=== PATIENT | male | born 1995 ===

== ENCOUNTER 2024-06-23 13:59 | Outpatient (AMB) | payer OTHER, SELFPAY ==
--- NOTE | 2024-06-23 14:03 | A.OFFPC_ITS ---
Vital Signs 06/23/24 14:16 Height 5 ft 6 in Weight 230 lb 6 oz BMI 37.2 BP 114/82 Blood Pressure Location Lt brachial Position Sitting Pulse 84 Pulse Source Pulse Oximeter Temp 97.1 F Temp Source Temporal Artery Scan Pulse Oximetry (%) 97 Oxygen Delivery Method Room Air Intake Visit Reasons: establish care Intake Note: The patient is a new patient establishing care for a physical exam. They have not seen a primary care provider in over 10 years. Cable Splicer Required: No Accompanied by: Self / Same As Patient Allergies No Known Allergies Allergy (Verified 06/23/24 14:21) Medication List - Last Reconciled 06/23/24 by Luis Shirley PA-C No Known Home Meds Tobacco use date assessed: 06/23/24 Dental Screening Dental Screen Date: 06/23/24 Did you have a dental visit in the last 12 months?: Yes Did you have a dental problem in the last 6 months where you did not have access to dental care?: No Was dental information given to patient?: Patient has dentist HPI establish care HPI Details The patient is a 28-year-old male presenting for a wellness visit and to discuss family history of high cholesterol. He reports no personal medical history of high blood pressure or other significant conditions. His primary concern relates to his family background, as both parents and a brother have high cholesterol. The patient is proactive about managing this risk, wanting to check his cholesterol levels. There are no reported incidents of cancer, heart attacks, or strokes within the family. He reported no personal past surgeries or serious illnesses. Vaccines: Up-to-date with COVID vaccine, declines flu vaccine. Considering tet[facility] Family History (Updated 06/23/24 @ 14:24 by Luis Shirley PA-C) Mother HLD (hyperlipidemia) Father HLD (hyperlipidemia) Brother HLD (hyperlipidemia) Social History (Updated 06/23/24 @ 14:25 by Luis Shirley PA-C) Housing: House Alcohol intake: current Alcohol intake frequency: holidays/special occasions only Patient Tobacco Use Status: Never used Tobacco e-Cigarette/Vaping Use: Never Used service: No Current occupational status: employed Current occupation: [employer] Cognitive needs: No Hearing needs: No Vision needs: No Questionnaire PHQ-9 Over the last 2 weeks, how often have you been bothered by any of the following problems? 1. Little interest or pleasure in doing things: not at all 2. Feeling down, depressed, or hopeless: not at all 3. Trouble falling or staying asleep, or sleeping too much: not at all 4. Feeling tired or having little energy: not at all 5. Poor appetite or overeating: not at all 6. Feeling bad about yourself - or that you are a failure or have let yourself or your family down: not at all 7. Trouble concentrating on things, such as reading the newspaper or watching television: not at all 8. Moving or speaking so slowly that other people could have noticed. Or the opposite - being so fidgety or restless that you have been moving around a lot more than usual: not at all 9. Thoughts that you would be better off or of hurting yourself in some way: not at all Total score: 0 Depression Screening Interpretation: Negative Depression Screening Done: Yes 06077 - PHQ-9 Billing: Yes Source: Developed by Drs. Garo Torrez, Mayte Landeros, Bhavik Hess and colleagues, with an educational geronimo from [employer]. Thrive Questionnaire Date Thrive assessed: 06/23/24 I am a: Patient What is your living situation today?: I have a steady place to live Within the past 12 months, did the food you bought not last and you didn't have the money to get more?: I choose not to answer this question Within the past 12 months, did you worry whether your food would run out before you got money to buy more?: I choose not to answer this question Do you have trouble paying for medicines?: I choose not to answer this question Do you have trouble getting transportation to medical appointments?: I choose not to answer this question Do you have trouble paying your heating and electricity bill?: I choose not to answer this question Do you have trouble taking care of your child, family member or friend?: I choose not to answer this question Do you have trouble with day-to-day activities such as bathing, preparing meals, shopping, managing finances, etc.?: I choose not to answer this question Are you currently unemployed and looking for a job?: I choose not to answer this question Are you interested in more education?: I choose not to answer this question Please select the resources that you would like help with: None Currently or been in a relationship where the following occur: I choose not to answer THRIVE Score: 0 AUDIT C Alcohol Use Questionnaire (AUDIT-C) 1. How often do you have a drink containing alcohol?: 2-4 times a month 2. How many drinks containing alcohol do you have on a typical day when you are drinking?: 1 or 2 3. How often do you have six or more drinks on one occasion?: Less than monthly Total Score: 3 KAYLIE-7 AMB Questionnaire KAYLIE-7 Date KAYLIE - 7 assessed: 06/23/24 Feeling nervous, anxious, or on edge: 0 = Not at all Not being able to stop or control worryin = Not at all Worrying too much about different things: 0 = Not at all Trouble relaxin = Not at all Being so restless that it is hard to sit still: 0 = Not at all Becoming easily annoyed or irritable: 0 = Not at all Feeling afraid as if something awful might happen: 0 = Not at all Total KAYLIE-7 score (0-4 normal; 5-9 mild; 10-14 moderate; 15-21 severe): 0 Source: Developed by Drs. Garo Torrez, Mayte Landeros, Bhavik Hess and colleagues, with an educational geronimo from [employer]. KAYLIE-7 Assessment Billing KAYLIE-7 Assessment Tool: KAYLIE-7 Assessment 50041 Review of Systems Const Denies headache(s) Eyes Denies loss of vision ENT Denies vertigo, Denies dizziness, Denies headache(s) and Denies sore throat Card Denies chest pain, Denies leg edema and Denies lightheadedness Resp Denies cough, Denies hemoptysis and Denies wheezing GI Denies abdominal pain, Denies melena, Denies constipation, Denies diarrhea and Denies vomiting Denies dysuria, Denies urinary frequency and Denies urinary urgency Musc Denies arthralgias, Denies joint swelling, Denies numbness and Denies tingling Neuro Denies Abnormal speech present, Denies behavioral changes, Denies vertigo, Denies dizziness, Denies headache(s), Denies loss of vision, Denies memory loss, Denies numbness and Denies tingling Psych Denies anxiety, Denies behavioral changes, Denies depression, Denies memory loss and Denies panic attacks Jeancarlos/Lymph Denies easy bleeding and Denies easy bruising Aller/Immun Denies wheezing Physical exam (Primary Care) Vital Signs: Last Vital Signs Temp 97.1 F 06/23/24 14:16 Pulse 84 06/23/24 14:16 BP 114/82 06/23/24 14:16 Pulse Ox 97 06/23/24 14:16 Oxygen Delivery Method Room Air 06/23/24 14:16 BMI result Body Mass Index 37.2 BMI Assessment/Plan discussion: High BMI High, discussed plan: lifestyle, weight reduction, dietary and physical activity Tobacco/Smoking Status: Tobacco use Status Tobacco use date assessed 06/23/24 06/23/24 14:05 Patient Tobacco Use Status Never used Tobacco 06/23/24 14:25 e-Cigarette/Vaping Use Never Used 06/23/24 14:25 PHQ-9: PHQ-9 Score PHQ-9: Total score 0 06/23/24 14:26 Depression Screening Interpretation: Negative Thrive Assessment: Date of Thrive Assessment Date Thrive assessed 06/23/24 06/23/24 14:05 Currently or been in a relationship where the following occur: I choose not to answer Const General: healthy appearing, no acute distress, alert and awake Nutritional Appearance: well nourished Orientation/consciousness: oriented to person, oriented to place and oriented to time HENMT Ears: TM's normal bilaterally General nose exam: Normal nasal mucous membranes and turbinates present Eyes Conjunctivae: conjunctivae normal Sclerae: sclerae normal Pupils: Equal, round and reactive pupils present Neck Neck: Yes no lymphadenopathy and Yes no JVD Thyroid: Thyroid normal Carotids: no bruits Resp Effort & Inspection: normal respiratory effort and not tachypneic Auscultation: no crackles, no rales, no rhonchi and no wheezes Cardio Rate: regular rate Rhythm: regular rhythm Heart sounds: no murmurs and normal S1 and S2 GI Palpation (GI): Soft to palpation, nontender, no hepatomegaly and no splenomegaly Auscultation: normal bowel sounds Skin General skin exam: no rashes or lesions noted and dry skin Neuro General: oriented to person, oriented to place and oriented to time Cranial nerves: Yes Equal, round and reactive pupils present Speech: No Abnormal speech present Gait exam (Neuro): Normal gait present Motor exam (neuro): no tremor noted Extrem Right upper extremity: full ROM Left upper extremity: full ROM Right lower extremity: full ROM; no edema Left lower extremity: full ROM; no edema Psych Mental Status: mental status grossly normal Speech and movement: Normal speech and movement present Affect: normal affect Attitude: cooperative Thought process: Normal thought process present Office Procedures Flu Questionnaire Does the patient have a severe egg allergy?: No Does the patient have severe life threatening allergies?: No Does the patient have a fever or illness today?: No Has the patient ever had Guillain-Wadley Syndrome?: No Has the patient ever had any past reaction to a flu shot?: No Immunizations Fluarix Triv [id number] (PF) 45 mcg (15 mcg x 3)/0.5 mL IM syringe Performing Provider: Luis Shirley PA-C [place] [facility] [place] [facility] Documented (not given) by: ALECIA Goss on 06/23/24 14:20 Reason Not Given: Patient Refused Coding Level of Care Code New Pt Level 4 (53095) Diagnoses Class 2 obesity E66.812 Screening for diabetes mellitus (DM) Z13.1 Family history of high cholesterol Z83.42 Additional Codes KAYLIE-7 Assessment Billing - KAYLIE-7 Assessment Tool: KAYLIE-7 Assessment 44976 ([id number]) PHQ-9 - 09936 - PHQ-9 Billing: Yes ([id number]) Assessment & Plan Assessment & Plan (1) Class 2 obesity: Code(s): E66.812 - Obesity, class 2 Category: Medical Plan: Patient does understand his BMI is over 35 and has been working on being more physically active and adapting to better eating habits. He does mention some interested in a GLP 1 though will continue working on lifestyle and dietary modifications for now. (2) Screening for diabetes mellitus (DM): Code(s): Z13.1 - Encounter for screening for diabetes mellitus Category: Medical Plan: As per HPI (3) Family history of high cholesterol: Code(s): Z83.42 - Family history of familial hypercholesterolemia Category: Medical Plan: Patient does admit to a family history of high cholesterol in his mother, brother father. Will do a baseline screening for hyperlipidemia Orders: Orders Comprehensive [place]. Panel Fast 06/23/24 Z13.1 - Encounter for screening for diabetes mellitus Complete Blood Count no Diff 06/23/24 Z13.1 - Encounter for screening for diabetes mellitus Influenza [id number] Immunization 06/23/24 Z23 - Encounter for immunization Lipid Panel 06/23/24 Z83.42 - Family history of familial hypercholesterolemia
[2024-06-23 14:16] VITALS: BP 114/82; PULSE 84; TEMP 36.2; O2SAT 97; BMI 37.2
== END 2024-06-23 14:44 | disposition home or self-care (01) ==
PROVIDERS: Visit Provider Physician Assistant
DX: Z23 Encounter for immunization (principal)

== ENCOUNTER → 2024-06-23 13:59 | Outpatient (BNVA) | payer OTHER, SELFPAY | PROVIDERS: Visit Provider Physician Assistant | DX: E66.812 Obesity, class 2 (principal); Z83.42 Family history of familial hypercholesterolemia | CPT/HCPCS: 90471; 96127 ==

== ENCOUNTER 2024-07-14 15:06 | Outpatient (REF) | payer OTHER, SELFPAY ==
[2024-07-14 16:19] LABS: Hematocrit 45.2 % (42.0-52.0); Mean Corpuscular HGB Conc 33.2 g/dl (31.0-36.0); Mean Corpuscular Hemoglobin 27.8 pg (27.0-33.0); Mean Corpuscular Volume 83.7 fL (80.0-98.0); Mean Platelet Volume 8.7 fL (9.4-12.4); Platelet Count 307 X10*3/uL (160-400); Red Cell Distribution Width 13.1 % (11.0-16.0); White Blood Count 9.3 X10*3/uL (4.8-10.8)
[2024-07-14 17:27] LABS: Alanine Aminotransferase 42 U/L (0-40); Albumin Level 4.4 g/dL (3.5-5.0); Anion Gap 12 (12-20); Aspartate Amino Transferase 32 U/L (5-37); Bilirubin Total 0.5 mg/dL (0.0-1.0); Blood Urea Nitrogen 13 mg/dL (9-16); Calcium 9.6 mg/dL (8.4-10.2); Carbon Dioxide 27 mmol/L (22-29); Chloride 105 mmol/L (96-108); Cholesterol 185 mg/dL (<200); Estimated Glomerular Filt Rate > 60; Glucose Fasting 84 mg/dL (60-99); HDL Cholesterol 52 mg/dL (>40); LDL Cholesterol Calculated 115 mg/dL (<100); Potassium 3.9 mmol/L (3.3-5.1); Sodium 140 mmol/L (135-145); Total Protein 8.3 g/dL (6.5-8.0); Triglycerides 90 mg/dL (<150)
[2024-07-14 17:58] LABS: Alkaline Phosphatase 88 U/L (39-117)
== END 2024-07-14 15:07 | disposition home or self-care (01) ==
LOC: HO.LAB 15:06
PROVIDERS: PCP Physician Assistant; Visit Provider Physician Assistant
DX: Z13.1 Encounter for screening for diabetes mellitus (principal); Z83.42 Family history of familial hypercholesterolemia
CPT/HCPCS: 36415; 80053; 80061; 85027

== ENCOUNTER 2025-04-14 15:09 | Outpatient (REF) | payer OTHER, SELFPAY ==
[2025-04-14 17:15] LABS: Hematocrit 46.6 % (42.0-52.0); Hemoglobin 15.7 g/dl (14.0-18.0); Mean Corpuscular HGB Conc 33.7 g/dl (31.0-36.0); Mean Corpuscular Hemoglobin 28.3 pg (27.0-33.0); Mean Corpuscular Volume 84.0 fL (80.0-98.0); NRBC Abs Auto 0.000 X10*3/uL (0.0-0.012); NRBC Pct Auto 0.0 /100WBC (0.0-0.2); Platelet Count 298 X10*3/uL (160-400); Red Blood Count 5.55 X10*6/uL (4.60-5.80); White Blood Count 8.7 X10*3/uL (4.8-10.8)
[2025-04-14 17:41] LABS: Alanine Aminotransferase 34 U/L (0-40); Albumin Level 5.0 g/dL (3.5-5.0); Alkaline Phosphatase 90 U/L (39-117); Anion Gap 13 (12-20); Aspartate Amino Transferase 28 U/L (5-37); Blood Urea Nitrogen 10 mg/dL (9-16); Calcium 9.9 mg/dL (8.4-10.2); Carbon Dioxide 28 mmol/L (22-29); Chloride 103 mmol/L (96-108); Cholesterol 231 mg/dL (<200); Estimated Glomerular Filt Rate > 60; HDL Cholesterol 51 mg/dL (>40); Potassium 4.2 mmol/L (3.3-5.1); Sodium 140 mmol/L (135-145); Total Protein 8.0 g/dL (6.5-8.0); Triglycerides 117 mg/dL (<150)
== END 2025-04-14 15:10 | disposition home or self-care (01) ==
LOC: HO.LAB 15:09
PROVIDERS: PCP Physician Assistant; Visit Provider Physician Assistant
DX: Z00.00 Encounter for general adult medical examination without abnormal findings (principal); E78.00 Pure hypercholesterolemia, unspecified; E66.812 Obesity, class 2; Z23 Encounter for immunization; Z13.1 Encounter for screening for diabetes mellitus; Z68.36 Body mass index [BMI] 36.0-36.9, adult; Z83.42 Family history of familial hypercholesterolemia
CPT/HCPCS: 36415; 80053; 80061; 85027; 90471; 90715; 96127

== ENCOUNTER 2025-04-14 15:09 | Outpatient (AMB) | payer OTHER, SELFPAY ==
--- NOTE | 2025-04-14 15:22 | A.OFFPC_ITS ---
Vital Signs 04/14/25 15:23 Height 5 ft 6 in Weight 225 lb 8 oz BMI 36.4 BP 108/80 Blood Pressure Location Lt brachial Position Sitting Pulse 83 Pulse Source Pulse Oximeter Temp 97.1 F Temp Source Temporal Artery Scan Pulse Oximetry (%) 97 Oxygen Delivery Method Room Air Intake Visit Reasons: annual exam Intake Note: Patient is here today for a physical. Chronic Specialist Required: No Automatic Spinning Lathe Operator: Not Required per policy Accompanied by: Self / Same As Patient Allergies No Known Allergies Allergy (Verified 04/14/25 15:30) Medication List - Last Reconciled 04/14/25 by Luis Shirley PA-C No Known Home Meds Tobacco use date assessed: 04/14/25 Dental Screening Dental Screen Date: 06/23/24 HPI annual exam HPI Details Patient is a 29-year-old male here today for an annual physical. Patient has a past medical history significant for class 2 obesity and a family history of high cholesterol. Patient has a family history of high cholesterol, most recent lipid panel showing appropriate total cholesterol and LDL. He would like to continue monitoring his cholesterol. .. Class 2 obesity: Patient does understand his BMI is over 35 and will continue working on being more physically active and adapting to better eating habits to reduce his weight. Vaccines: Up-to-date with COVID vaccine, declines FLu , Needs Tdap PFSH Surgical History History of placement of ear tubes Family History Mother HLD (hyperlipidemia) Father HLD (hyperlipidemia) Brother HLD (hyperlipidemia) Social History (Updated 04/14/25 @ 15:34 by Luis Shirley PA-C) Housing: House Alcohol intake: current Alcohol intake frequency: holidays/special occasions only Patient Tobacco Use Status: Never used Tobacco e-Cigarette/Vaping Use: Never Used Second Hand Smoke Exposure: No service: No Current occupational status: employed Current occupation: [employer] Cognitive needs: No Hearing needs: No Vision needs: No Questionnaire PHQ-9 Over the last 2 weeks, how often have you been bothered by any of the following problems? 1. Little interest or pleasure in doing things: nearly every day 2. Feeling down, depressed, or hopeless: not at all 3. Trouble falling or staying asleep, or sleeping too much: not at all 4. Feeling tired or having little energy: not at all 5. Poor appetite or overeating: not at all 6. Feeling bad about yourself - or that you are a failure or have let yourself or your family down: not at all 7. Trouble concentrating on things, such as reading the newspaper or watching television: not at all 8. Moving or speaking so slowly that other people could have noticed. Or the opposite - being so fidgety or restless that you have been moving around a lot more than usual: not at all 9. Thoughts that you would be better off or of hurting yourself in some way: not at all Total score: 3 Depression Screening Interpretation: Positive Depression Screening Done: Yes 90956 - PHQ-9 Billing: Patient declined-do not bill Source: Developed by Drs. Garo Torrez, Mayte Landeros, Bhavik Hess and colleagues, with an educational geronimo from [employer]. Thrive Questionnaire Date Thrive assessed: 06/16/24 I am a: Patient What is your living situation today?: I have a steady place to live Within the past 12 months, did the food you bought not last and you didn't have the money to get more?: I choose not to answer this question Within the past 12 months, did you worry whether your food would run out before you got money to buy more?: I choose not to answer this question Do you have trouble paying for medicines?: I choose not to answer this question Do you have trouble getting transportation to medical appointments?: I choose not to answer this question Do you have trouble paying your heating and electricity bill?: I choose not to answer this question Do you have trouble taking care of your child, family member or friend?: I choose not to answer this question Do you have trouble with day-to-day activities such as bathing, preparing meals, shopping, managing finances, etc.?: I choose not to answer this question Are you currently unemployed and looking for a job?: I choose not to answer this question Are you interested in more education?: I choose not to answer this question Please select the resources that you would like help with: None Currently or been in a relationship where the following occur: I choose not to answer THRIVE Score: 0 KAYLIE-7 AMB Questionnaire KAYLIE-7 Date KAYLIE - 7 assessed: 06/23/24 Source: Developed by Drs. Garo Torrez, Mayte Landeros, Bhavik Hess and colleagues, with an educational geronimo from [employer]. Review of Systems Const Denies body aches, Denies chills, Denies excessive sweating, Denies fatigue, Denies fever(s) and Denies headache(s) Eyes Denies blurry vision ENT Denies dysphagia, Denies vertigo, Denies dizziness, Denies headache(s), Denies hearing loss and Denies tinnitus Card Denies chest pain, Denies chest pain with activity, Denies syncope, Denies irregular heart rhythm and Denies dyspnea Resp Denies chest congestion, Denies cough, Denies hemoptysis, Denies dyspnea and Denies wheezing GI Denies abdominal pain, Denies melena, Denies hematochezia, Denies coffee ground emesis, Denies dysphagia, Denies diarrhea, Denies nausea and Denies vomiting Denies difficulty urinating, Denies dysuria, Denies urinary frequency, Denies urinary hesitancy and Denies urinary urgency Musc Denies arthralgias, Denies limited range of motion, Denies muscle cramps and Denies muscle weakness Skin/Breast Denies rash and Denies skin ulcer Neuro Denies Abnormal speech present, Denies confusion, Denies vertigo, Denies dizziness, Denies syncope, Denies headache(s), Denies memory loss and Denies seizure-like activity Psych Denies anxiety, Denies confusion, Denies depression, Denies memory loss, Denies panic attacks and Denies paranoia Endo Denies excessive sweating, Denies fatigue, Denies flushing, Denies polydipsia and Denies polyuria Aller/Immun Denies wheezing Physical exam (Primary Care) Vital Signs: Last Vital Signs Temp 97.1 F 04/14/25 15:23 Pulse 83 04/14/25 15:23 BP 108/80 04/14/25 15:23 Pulse Ox 97 04/14/25 15:23 Oxygen Delivery Method Room Air 04/14/25 15:23 BMI result Body Mass Index 36.4 BMI Assessment/Plan discussion: High BMI High, discussed plan: lifestyle, weight reduction, dietary and physical activity Tobacco/Smoking Status: Tobacco use Status Tobacco use date assessed 04/14/25 04/14/25 15:29 Patient Tobacco Use Status Never used Tobacco 04/14/25 15:29 e-Cigarette/Vaping Use Never Used 04/14/25 15:29 PHQ-9: PHQ-9 Score PHQ-9: Total score 3 04/14/25 15:29 Depression Screening Interpretation: Positive Thrive Assessment: Date of Thrive Assessment Date Thrive assessed 06/16/24 04/14/25 15:29 Currently or been in a relationship where the following occur: I choose not to answer Const General: cooperative, comfortable, no acute distress, alert and awake; No confusion Orientation/consciousness: oriented to person, oriented to place, patient oriented x3 and No confusion HENMT Head: Yes normocephalic Ears: external ears normal and TM's normal bilaterally Face and sinus: No sinus tenderness Mouth: Normal oral and palatal mucosa present and tongue normal Teeth and gingiva: dentition normal and gingiva normal Throat: Yes posterior oropharynx normal, Yes tonsils normal and Yes uvula midline Eyes Conjunctivae: conjunctivae normal Sclerae: sclerae normal Pupils: Equal, round and reactive pupils present EOM: EOMs intact bilaterally Direct Ophthalmoscopy: No no photophobia Neck Neck: Yes no lymphadenopathy, No tender and Yes no JVD Thyroid: Thyroid normal Carotids: no bruits Chest Chest palpation & inspection: no tenderness Resp Effort & Inspection: normal respiratory effort, no audible wheezes, not labored and no stridor Auscultation: no crackles, no rales, no rhonchi and no wheezes Cardio Jugular venous distension: no JVD Rate: regular rate, not bradycardic and not tachycardic Rhythm: regular rhythm Bruits: no carotid bruits Peripheral pulses: Peripheral pulses 2+ throughout GI Inspection: Yes normal to inspection, No abdominal wall ecchymosis and No visible herniation Palpation (GI): Soft to palpation, nontender, no guarding, not rigid and No hepatosplenomegaly present Auscultation: normoactive bowel sounds General: Yes no CVA tenderness Back/Spine/Pelvis Back: no CVA tenderness and No back tenderness Cervical Spine: cervical ROM normal Thoracic/Lumbar Spine: thoracic and lumbar spine normal to inspection, straight leg raise negative bilaterally, No thoraco-lumbar ROM limited and No lumbar spinal tenderness Skin Lesions: no lesions Rashes: no rashes Wounds: no wounds Neuro General: oriented to person, oriented to place, patient oriented x3, CN's II-XI intact bilaterally and No confusion Cranial nerves: Yes Equal, round and reactive pupils present and Yes Normal accommodation reflex present Cognition (Neuro): normal cognition Speech: No Abnormal speech present Gait exam (Neuro): Normal gait present Motor exam (neuro): 5/5 motor strength present throughout Extrem Right upper extremity: full ROM; no cyanosis Left upper extremity: full ROM; no cyanosis Right lower extremity: no edema Left lower extremity: no edema Psych Appearance: grossly normal Mental Status: mental status grossly normal Affect: normal affect Attitude: cooperative Thought process: Normal thought process present Coding Level of Care Code Est Pt Prev Care 18-39y(27835) Diagnoses Annual physical exam Z00.00 Class 2 obesity E66.812 Family history of high cholesterol Z83.42 Assessment & Plan Assessment & Plan (1) Annual physical exam: Code(s): Z00.00 - Encounter for general adult medical examination without abnormal findings Category: Medical Plan: As per HPI (2) Class 2 obesity: Code(s): E66.812 - Obesity, class 2 Category: Medical Plan: Patient has been able to lose 5 lb since last office visit. Patient does understand his BMI is over 35 and has been working on being more physically active and adapting to better eating habits. (3) Family history of high cholesterol: Code(s): Z83.42 - Family history of familial hypercholesterolemia Category: Medical Plan: Patient does admit to a family history of high cholesterol in his mother, brother father. Recent lipid panel showing appropriate cholesterol numbers. Orders: Orders TDaP Immunization Today Z13.1 - Encounter for screening for diabetes mellitus, Z23 - Encounter for immunization Lipid Panel Today Z83.42 - Family history of familial hypercholesterolemia Complete Blood Count no Diff Today Z13.1 - Encounter for screening for diabetes mellitus Comprehensive [place]. Panel Fast Today Z13.1 - Encounter for screening for diabetes mellitus Medications: New Boostrix Tdap (diphth,pertus(acell),tetanus) 0.5 mL IM ONCE 0.5 mL 0RF NS Z13.1 - Encounter for screening for diabetes mellitus, Z23 - Encounter for immunizati on
[2025-04-14 15:23] VITALS: BP 108/80; PULSE 83; TEMP 36.2; O2SAT 97; BMI 36.4
--- OUTSIDE RECORDS SUMMARY | 2025-04-14 18:50 | XMS_ITS | Encounter Summary ---
Author Organization [facility] Address [address] [place] [address] Care Team Providers Care Porter Marina Name Role Phone Physician, No Pcp Primary Care Provider Unavaila ble Encounter Details Date Type Department Care Team (Latest Contact Info) Description 07/29/2024 Lab Requisition [facility] - Main Lab [address] [place] [address] Kamaljit Barfield MD [address] [facility] [address] [place], [place] [id number] Encounter for sterilization Social History Tobacco Use Types Packs/Day Years Used Date Smoking Tobacco: Never Assessed Sex and Gender Information Value Date Recorded Sex Assigned at Not on file Legal Sex Male 3:10 PM EST Gender Identity Not on file Sexual Orientation Not on file documented as of this encounter Plan of Treatment Not on file documented as of this encounter Procedures Procedure Name Priority Date/Time Associated Diagnosis Comments AP OUTSIDE CONSULT Routine 07/25/2024 Encounter for sterilization documented in this encounter Results * Anatomic pathology outside consult (07/25/2024) Final Diagnosis A. Vas Deferens, Right: -SEGMENT OF NORMAL VAS DEFERENS WITH EPITHELIUM/ LUMEN IDENTIFIED. B. Vas Deferens, Left: -SEGMENT OF NORMAL VAS DEFERENS WITH EPITHELIUM/ LUMEN IDENTIFIED. 07/29/2024 12:51 PM EDT [facility] Clinical Information Z30.2 - Encounter for sterilization [id number] 07/29/2024 12:51 PM EDT [facility] Gross Description A. Vas Deferens, Right, : Labeled Right vas deferens . Received in formalin is a 0.2 x 0.3 cm rubbery, lazo, tubular portion of tissue, with a central pinpoint lumen, which is submitted in toto in one cassette, between sponges, one piece, embed on end. (The luminal aspect is inked red to assist with embedding orientation.) B. Vas Deferens, Left, : Labeled Left vas deferens . Received in formalin is a 0.2 x 0.3 cm rubbery, lazo, tubular portion of tissue, with a central pinpoint lumen, which is submitted in toto in one cassette, between sponges, one piece, embed on end. (The luminal aspect is inked red to assist with embedding orientation.) /al 07/29/2024 12:51 PM EDT [facility] Disclaimer Unless otherwise specified, all tissue is 10% NB formalin fixed and paraffin embedded. Technical pathology services provided by [facility] at [address] [place] [address] [address], [place] [address] (CLIA #[id number]/Mally Valladares MD, Transport Analyst) 07/29/2024 12:51 PM EDT [facility] Tissue Structure of left vas deferens / Unknown 07/25/2024 07/29/2024 9:03 AM EDT Tissue specimen (specimen) Structure of left vas deferens / Unknown 07/25/2024 07/29/2024 9:03 AM EDT us Kamaljit Barfield MD LAB PATHOLOGY ORDERABLES Fi nal Result [facility] [address] [place] [address], documented in this encounter Visit Diagnoses Diagnosis Encounter for sterilization Sterilization documented in this encounter Care Teams Porter Marina Relationship Specialty Start Date End Date Physician, No Pcp PCP - General 07/29/24 documented as of this encounter
--- OUTSIDE RECORDS SUMMARY | 2025-04-14 18:50 | XMS_ITS | Clinical Summary ---
Author Organization [address] [facility] Address [address] [place] [address] Phone Care Team Providers Care Director Mission Name Role Phone Physician, No Pcp Primary Care Provider Unavaila ble Social History Tobacco Use Types Packs/Day Years Used Date Smoking Tobacco: Never Assessed Sex and Gender Information Value Date Recorded Sex Assigned at Not on file Legal Sex Male 3:10 PM EST Gender Identity Not on file Sexual Orientation Not on file Plan of Treatment Health Maintenance Due Date Last Done Comments DTaP,Tdap,and Td Vaccines (1 - Tdap) 2016 Hepatitis B Vaccines (1 of 3 - 19+ 3-dose series) 2016 Depression Screening 05/21/2024 HIV Screening 07/29/2024 Hepatitis C Screening 07/29/2024 Social Influencers of Health Screening 07/29/2024 HPV Vaccines (1 - 3-dose SCD M series) 2024 COVID-19 Vaccine (1 - 2024-2 6 season) 2025 Influenza Vaccine (#1) 2025 RSV Immunization Adult Patie nts (1 - 1-dose 75+ series) 2072 HIB Vaccines Aged Out No longer eligi ble based on patient's age to complete this topic Hepatitis A Vaccines Aged Out No long er eligible based on patient's age to complete this topic IPV Vaccines Aged Out No longer eligi ble based on patient's age to complete this topic MMR Vaccines Aged Out No longer eligi ble based on patient's age to complete this topic Meningococcal ACWY Vaccine Aged Out N o longer eligible based on patient's age to complete this topic Meningococcal B Vaccine Aged Out No l onger eligible based on patient's age to complete this topic Pneumococcal Vaccine: Pediat rics (0 to 5 Years) and At-Risk Patients (6 to 49 Years) Aged Out No longer eligible b ased on patient's age to complete this topic RSV Immunization Patients Un neymar 20 months Aged Out No longer eligible b ased on patient's age to complete this topic Varicella Vaccines Aged Out No longer eligible based on patient's age to complete this topic Insurance [facility] Care Teams Director Mission Relationship Specialty Start Date End Date Physician, No Pcp PCP - General 07/29/24
== END 2025-04-14 16:46 | disposition home or self-care (01) ==
LOC: HO.HMCH 15:10
PROVIDERS: PCP Physician Assistant; Visit Provider Physician Assistant
DX: Z00.00 Encounter for general adult medical examination without abnormal findings (principal); E66.812 Obesity, class 2; Z68.36 Body mass index [BMI] 36.0-36.9, adult; Z83.42 Family history of familial hypercholesterolemia; Z23 Encounter for immunization; Z13.1 Encounter for screening for diabetes mellitus